=== PATIENT | female | born 1975 | race African-American/Black ===

== ENCOUNTER → 2023-08-23 | Outpatient (CLI) | payer OTHER ==
[2023-08-23 20:59] LABS: PLATELET COUNT 328 K/uL (152-353)
[2023-08-23 22:35] LABS: POTASSIUM 3.3 mmol/L (3.6-5.2)
== END ==
LOC: LABW 20:39
PROVIDERS: ATTEND Nurse Practitioner Family
DX: Z79.899 Other long term (current) drug therapy (principal); R73.01 Impaired fasting glucose; R53.83 Other fatigue
CPT/HCPCS: 80053; 80061; 83036; 84443; 85027